=== PATIENT | female | born 1945 | race Caucasian/White ===

== ENCOUNTER → 2018-04-16 | Outpatient (CLI) | payer OTHER ==
[~2018-04-16] MED LIST: ETOD200 PO; SPIRCAP INH; VAGI25TA4 PV
--- NOTE | 2018-04-17 09:25 | RSPPFT ---
DATE OF PROCEDURE: 04/16/18 COMMENTS: Spirometry shows FVC of 3.1 at 114% of predicted, FEV1 of 2.0 at 97%, FEV1/FVC ratio is decreased. Flow is decreased at FEF 50, FEF 75 and FEF 25-75. There is no response after bronchodilator treatment. Lung volumes show residual volume is normal. TLC is normal. Diffusion capacity is mildly decreased. Flow volume loop indicates terminal airways obstruction. IMPRESSION: 1. Mild small airways obstructive lung disease. 2. No response after bronchodilator treatment. 3. Lung volumes are normal. 4. Mild decrease in diffusion capacity.
== END ==
LOC: HRSP 09:54
PROVIDERS: ATTEND Specialist
DX: J44.9 Chronic obstructive pulmonary disease, unspecified (principal)
CPT/HCPCS: 94060; 94726; 94729